=== PATIENT | male | born 1955 | race Two or more races ===

== ENCOUNTER 2022-03-04 07:00 | Day surgery (SDC) | payer OTHER ==
[~2022-03-04] VITALS: Ht 172.7 cm; Wt 88.0 kg
[~2022-03-04 07:00] MED LIST: DIPH1TAB30 PO; LOSA-69 PO; METO25TA5 PO; MULTTAB99 PO; TAMS0.4C36 PO
[2022-03-04] MEDS ORDERED: HEPARIN IN NS 1000Units/500mL 1,500 ML ONE (07:33)
[2022-03-04] MEDS ORDERED: IODIXANOL 320MG/ML 100ML BTL IV ONE (07:33)
[2022-03-04] MEDS ORDERED: LIDOCAINE 2%HCL (LOCAL ANESTH.) INJ 10ml MDV ONE (07:33)
[2022-03-04] MEDS ORDERED: ANGIOMAX 250 MG VIAL IV ONE (07:49)
[2022-03-04] MEDS ORDERED: HEPARIN SODIUM (PORCINE) 5000 UNITS/ML 1ML VIAL ONE (07:49)
[2022-03-04] MEDS ORDERED: MIDAZOLAM HCL 2MG/2ML 2ml VIAL (1mg/ml) ONE (07:50)
[2022-03-04] MEDS ORDERED: fentaNYL CITRATE 100 MCG/2 ML VL ONE (07:50)
[2022-03-04] MEDS ORDERED: VERAPAMIL 2.5MG/ML INJ 2ML VIAL IV ONE (07:50)
[2022-03-04] MEDS ORDERED: SODIUM CHL 0.9% 0 ML ONE (07:50)
== END 2022-03-04 10:42 | disposition home or self-care (01) ==
LOC: CATH 07:00
PROVIDERS: ATTEND Internal Medicine Cardiovascular Disease
DX: I25.10 Atherosclerotic heart disease of native coronary artery without angina pectoris (principal); F17.200 Nicotine dependence, unspecified, uncomplicated; Z20.822 Contact with and (suspected) exposure to COVID-19
CPT/HCPCS: 93458; 93571; C1769; C1887; C1894; J1644; J2001; J2250; J3010; J7030; Q9967; U0003; 99152; 99153